=== PATIENT | female | born 1970 | race Two or more races ===

== ENCOUNTER → 2024-12-03 | Outpatient (CLI) | payer MEDICAID, SELFPAY ==
--- NOTE | 2024-12-03 08:15 | XR_ITS ---
Examination: Breast ultrasound, unilateral, left complete Date and time of exam: December 03, 2024 0844 hours INDICATIONS: Ultrasound left breast March 26, 2025 1:00 nodule 6 x 5 mm Technique: Real-time temple scale ultrasonographic imaging performed left breast including all 4 quadrants as well as nipple retroareolar and axillary region. Findings: 12:00 oval mass circumscribed 5 x 5 mm 11:00 cyst 3 x 2 mm 11:00 oval mass circumscribed 6 x 4 mm IMPRESSION: BI-RADS Category 3: Probably benign findings One additional 6 month left breast sonogram follow-up is needed to document stability of nodules described above
== END | disposition home or self-care (01) ==
PROVIDERS: PCP Physician Assistant Medical; Referring Provider Advanced Practice Midwife; Visit Provider Advanced Practice Midwife
DX: N63.25 Unspecified lump in the left breast, overlapping quadrants (principal); N63.22 Unspecified lump in the left breast, upper inner quadrant
CPT/HCPCS: 76641

== ENCOUNTER 2025-03-19 12:00 | Day surgery (SDC) | payer MEDICAID, SELFPAY ==
[2025-03-19] VITALS (13 sets, daily range): BP systolic 107–147; BP diastolic 62–118; PULSE 54–61; RESP 10–19; TEMP 36.7–36.9; O2SAT 98–100; BMI 25.4
[2025-03-19] MEDS: RINGERS LACTATED 1000 ML 1,000 ML 125 ML IV (15:20)
[2025-03-19] MEDS: MIDAZOLAM INJ 1 MG/ML VIAL 2 ML (ASD USE ONLY) 2 MG IV (15:28)
[2025-03-19] MEDS: fentaNYL CIT INJ 50 mCg/ML AMP 2ML (ASD USE ONLY) IV (15:28)
== END 2025-03-19 16:36 | disposition home or self-care (01) ==
PROVIDERS: Referring Provider Surgery; Visit Provider Surgery
PROC: 0DBE8ZX Excision of Large Intestine, Via Natural or Artificial Opening Endoscopic, Diagnostic (ICD-10-PCS; CPT 45380; principal; 2025-03-19 13:00)
DX: Z12.11 Encounter for screening for malignant neoplasm of colon (principal); D12.8 Benign neoplasm of rectum
CPT/HCPCS: 45380; 45385; 81025; A4217; J2250; J3010; J7120

== ENCOUNTER → 2025-06-22 | Outpatient (CLI) | payer MEDICAID, SELFPAY ==
--- NOTE | 2025-06-22 09:00 | XR_ITS ---
Examination: Breast ultrasound, unilateral, left Date and time of exam: June 22, 2025, 0933 hours INDICATIONS: Mammogram March 26, 2024 7 mm focal asymmetry left breast cc view Technique: Real-time temple scale ultrasonographic imaging performed left breast including all 4 quadrants as well as nipple retroareolar and axillary region. Findings: Multiple benign cysts No solid nodules IMPRESSION: BI-RADS Category 2: Benign findings
--- NOTE | 2025-06-22 09:30 | XR_ITS ---
Examination: Diagnostic digital mammography, bilateral Computer aided detection 3-D breast Tomosynthesis, bilateral Date and time of exam: 06/22/2025, 9:48 AM Comparisons: December 2018 through February 2024 Indications:Further evaluation of abnormality seen on prior screening exam Technique: Nonmagnified MLO, CC views of the breasts to been obtained, reconstructed from 3-D Tomosynthesis images. R2 computer aided detection program utilized for evaluation of suspicious masses and/or abnormal calcifications. 3-D Tomosynthesis images obtained. Findings: There are scattered areas of fibroglandular density. No evidence of abnormal masses or suspicious calcifications. The previously described abnormality does not persist on spot compression views and represents superimposition of normal fibroglandular tissue. Stable left postbiopsy marker clip. Impression: BI-RADS category 2: Benign findings Recommend 1 year follow-up mammogram
== END | disposition home or self-care (01) ==
PROVIDERS: PCP Physician Assistant; Referring Provider Physician Assistant; Visit Provider Physician Assistant
DX: R92.323 Mammographic fibroglandular density, bilateral breasts (principal)
CPT/HCPCS: 76641; 77062; 77066; G0279